=== PATIENT | female | born 1945 | race Two or more races ===

== ENCOUNTER 2018-10-12 18:31 | Emergency (ER) | payer MEDICARE, OTHER ==
[~2018-10-12] VITALS: Ht 165.1 cm; Wt 66.2 kg
[2018-10-12 23:00] VITALS: BP 118/69
== END 2018-10-12 23:35 | disposition home or self-care (01) ==
LOC: ER 18:41
DX: S52.502A Unspecified fracture of the lower end of left radius, initial encounter for closed fracture (principal); S52.612A Displaced fracture of left ulna styloid process, initial encounter for closed fracture; W18.39XA Other fall on same level, initial encounter; Y93.89 Activity, other specified; Y99.8 Other external cause status; Y92.89 Other specified places as the place of occurrence of the external cause
CPT/HCPCS: 29125; 73090; 73110; 73130